=== PATIENT | female | born 1955 | race Caucasian/White ===

== ENCOUNTER → 2016-08-15 18:25 | Outpatient (CLI) | payer MEDICARE | END | disposition home or self-care (01) | LOC: D.LABREF 18:25 | DX: I10 Essential (primary) hypertension (principal) ==

== ENCOUNTER → 2016-08-21 08:52 | Outpatient (CLI) | payer MEDICARE | END | disposition home or self-care (01) | LOC: D.CT 08:52 | DX: R10.9 Unspecified abdominal pain (principal) ==

== ENCOUNTER → 2017-02-16 13:24 | Outpatient (CLI) | payer MEDICARE, MEDICAID | END | disposition home or self-care (01) | LOC: D.CT 13:24 | DX: R05 Cough (principal) ==